=== PATIENT | female | born 1960 | race Caucasian/White ===

== ENCOUNTER 2021-02-26 16:28 | Emergency (ER) | payer OTHER ==
[~2021-02-26] VITALS: Ht 167.6 cm; Wt 54.4 kg
[2021-02-26] MEDS ORDERED: ONDANSETRON 4 MG/2 ML VIAL IV ONE (16:45)
[2021-02-26] MEDS ORDERED: CHARCOAL/SORBITOL SOLUTION 50 GM/240 ML BOTTLE NG ONE (16:45)
[2021-02-26] MEDS ORDERED: IV NORMAL SALINE 1000 ML BAG IV ONE ×2 (16:45→17:15)
[2021-02-26] MEDS ORDERED: CHARCOAL/SORBITOL SOLUTION 50 GM/240 ML BOTTLE ONE (16:56)
[2021-02-26] MEDS ORDERED: ONDANSETRON 4 MG/2 ML VIAL ONE (16:56)
[2021-02-26 16:57] LABS: BASOPHILS % (AUTO) 0.3 % (0.0-2.0); EOSINOPHILS # (AUTO) 0.1 K/uL (0.0-0.7); EOSINOPHILS % (AUTO) 1.3 % (0.0-7.0); HEMATOCRIT 44.3 % (31.2-41.9); HEMOGLOBIN 14.8 g/dL (10.9-14.3); LYMPHOCYTES # (AUTO) 1.7 K/uL (20.0-40.0); LYMPHOCYTES % (AUTO) 15.4 % (20.5-51.5); MEAN CORPUSCULAR HEMOGLOBIN 29.4 uug (24.7-32.8); MEAN CORPUSCULAR HGB CONC 33 g/dL (32.3-35.6); MEAN CORPUSCULAR VOLUME 88.1 fL (75.5-95.3); MONOCYTES # (AUTO) 0.6 K/uL (2.0-10.0); MONOCYTES % (AUTO) 5.7 % (0.0-11.0); NEUTROPHILS # (AUTO) 8.3 K/uL (1.8-8.9); NEUTROPHILS % (AUTO) 77.3 % (38.5-71.5); PLATELET COUNT (AUTO) 307 K/uL (179-408); RED BLOOD CELL COUNT(AUTO) 5.03 MIL/uL (3.63-4.92); WHITE BLOOD COUNT (AUTO) 10.7 K/uL (3.8-11.8)
[2021-02-26 17:03] LABS: CARBON DIOXIDE 27 mmol/L (21-32); CHLORIDE 100 mmol/L (98-107); CREATININE 0.8 mg/dL (0.6-1.3); GLUCOSE 90 mg/dL (74-106); POTASSIUM 4.1 mmol/L (3.5-5.1); UREA NITROGEN, BLOOD 15 mg/dL (7-18)
[2021-02-26 17:08] LABS: ALANINE AMINOTRANSFERASE 23 U/L (14-59); ALKALINE PHOSPHATASE 60 U/L (50-136); ASPARTATE AMINOTRANSFERASE 15 U/L (15-37); BILIRUBIN,DIRECT 0.1 mg/dL (0.0-0.2); BILIRUBIN,TOTAL 0.1 mg/dL (0.2-1.0); ETHANOL < 3 MG/DL (0-0); TOTAL PROTEIN, SERUM 7.2 g/dL (6.4-8.2)
[2021-02-26 17:18] LABS: ACETAMINOPHEN < 2.0 ug/mL (10-30)
--- NOTE | 2021-02-26 17:34 | NUR ---
second IV order was duplicate, not given.
[2021-02-26] MEDS ORDERED: DOXE50CA4 PO (18:39)
[2021-02-26] MEDS ORDERED: SERT25TA PO (18:39)
[2021-02-26] MEDS ORDERED: TEMA7.5C2 PO (18:39)
[2021-02-26] MEDS ORDERED: TEMA15CA PO (18:39)
[2021-02-26 18:44] LABS: *BILIRUBIN,URIN NEGATIVE (NEGATIVE); *BLOOD, URINE NEGATIVE (NEGATIVE); *CLARITY,URINE CLEAR (CLEAR); *COLOR,URINE YELLOW (YELLOW); *KETONES,URINE NEGATIVE (NEGATIVE); *UROBILINOGEN,URINE 0.2 E.U./dl (NORMAL); LEUKOCYTE ESTERASE ,URINE NEGATIVE (NEGATIVE); NITRITE, URINE NEGATIVE (NEGATIVE); PH,URINE 7.5 (5.0-8.0); UGLUCOSE NEGATIVE (NEGATIVE)
[2021-02-26 18:54] LABS: *AMPHETAMINE, URINE NEGATIVE (NEGATIVE); *CANNABINOID, URINE NEGATIVE (NEGATIVE); *COCCAINE, URINE NEGATIVE (NEGATIVE); *OPIATE, URINE NEGATIVE (NEGATIVE); *PHENCYCLIDINE SCREEN,URINE NEGATIVE (NEGATIVE)
--- NOTE | 2021-02-26 19:00 | NUR ---
Received patient in bed resting comfortaby. Patient is alert but still very drowsy, family at the bedside. Patient has NGZT placed to suction, ballard cath placed draining clear yellow urine. Dr. Oreilly and the family discussing plan to transfer.
--- NOTE | 2021-02-26 20:15 | NUR ---
NG tube removed without complications. Tip of tube intact, no bleeding noted. Patient provided with wash cloth and mild J&J soap to wash her face. Mitchell borges provided for her nare.
--- NOTE | 2021-02-26 20:20 | NUR ---
Dr. Oreilly speaking with Dr. Tobar of [facility].
--- NOTE | 2021-02-26 20:37 | NUR ---
Poison control contacted, they stated as since greater than 4 hours have pased since ingestion, and as long as she is not getting worse and is progressing toward her baseline, they dont recommend any further interventions.
--- NOTE | 2021-02-26 22:08 | NUR ---
Patient transferred via [facility] ambulance. Patient stable on transfer, VS stable, no SOB or signs of distress. All belongings accompanied patient. All pertinent paperwork given to transporting field traffic investigator. Report given to [facility] ER nurse. Accepting physician Dr. Metzger.
== END 2021-02-26 22:08 | disposition short-term general hospital (02) ==
LOC: ER 16:30
DX: T42.6X2A Poisoning by other antiepileptic and sedative-hypnotic drugs, intentional self-harm, initial encounter (principal); G92 Toxic encephalopathy; Y92.013 Bedroom of single-family (private) house as the place of occurrence of the external cause; Z88.0 Allergy status to penicillin; Z79.899 Other long term (current) drug therapy; Z20.822 Contact with and (suspected) exposure to COVID-19; R94.31 Abnormal electrocardiogram [ECG] [EKG]
CPT/HCPCS: 36415; 43752; 51702; 71045; 80048; 80076; 80299; 80307; 80320; 81003; 84443; 85025; 87426; 93005; 96361; 96374; 99291; J2405; A4663; G0480; J7030

== ENCOUNTER 2021-02-27 06:28 | Inpatient (IN) | payer OTHER ==
[~2021-02-27] VITALS: Ht 167.6 cm; Wt 54.4 kg
[2021-02-27] VITALS (53 sets, daily range): BP systolic 61–132; BP diastolic 36–84
[~2021-02-27 06:28] MED LIST: DOXE50CA4 PO; SERT25TA PO; TEMA15CA PO; TEMA7.5C2 PO
[2021-02-27] MEDS ORDERED: IV NORMAL SALINE 1000 ML BAG IV ONE ×2 (06:45→07:30)
[2021-02-27] MEDS ORDERED: NALOXONE HCL 0.4 MG/ML AMPUL ONE (06:45)
[2021-02-27] MEDS ORDERED: NALOXONE HCL 0.4 MG/ML AMPUL IV ONE (06:45)
--- NOTE | 2021-02-27 06:50 | NUR ---
Patient brought in by RA 83, Patient unresponsive to all stimuli, on NRBM 15L O2. Pupils 2mm sluggish. Patient connected to monitor, SBP 86/52, HR 92, SPO2 100% on 15L NRBM. BS 113. Paramedics stated they had to utilize a BVM in the field due to abnormal respirations. Patient was previously here 02/26/2021 for overdose on ambien 16 5mg tabs, transferred to [facility] @2208 02/26/21 for phyche evaluation due to suicidal ideations and suicide attempt. Patient was apparently discharged by [place]. This morning the patient's family found her face down in the bathroom unresponsive, prompting them to call 911.
[2021-02-27] MEDS ORDERED: levETIRAcetam IV 1,000 MG in IV DEXTROSE 5% 100 ML IV STA (06:52)
[2021-02-27] MEDS ORDERED: MAGNESIUM SULFATE/D5W 200 ML ONE (07:00)
[2021-02-27] MEDS ORDERED: PROPOFOL 0 ML ONE (07:01)
[2021-02-27] MEDS: MAGNESIUM SULFATE/D5W 100 ML IV SCH ×2 (07:10→08:00)
--- NOTE | 2021-02-27 07:10 | NUR ---
20g peripheral IV started in the right wrist, 1L NS bolus started. Narcan 0.4mg given, not effective.
[2021-02-27] MEDS ORDERED: NOREPINEPHRINE BITARTRATE 4 MG/4 ML VIAL IV ONE (07:13)
[2021-02-27] MEDS ORDERED: LORAZEPAM 2 MG/1 ML VIAL IV ONE (07:15)
[2021-02-27] MEDS: NOREPINEPHRINE BITARTRATE 8 MG in IV NORMAL SALINE 242 ML IV PRN ×5 (07:15→23:46)
--- NOTE | 2021-02-27 07:15 | NUR ---
Patient intubated by Dr. Gama, 8.0 ETT @ 22cm. Ventilator settings AC 16, vT 450, SFiO2 50, PEEP 5. Patient started on levophed 8mg/242mL NS @1mcg/kg/min for SBP 59 at this time.
[2021-02-27 07:24] LABS: BASOPHILS % (AUTO) 0.2 % (0.0-2.0); EOSINOPHILS # (AUTO) 0.1 K/uL (0.0-0.7); EOSINOPHILS % (AUTO) 1.1 % (0.0-7.0); HEMATOCRIT 39.8 % (31.2-41.9); HEMOGLOBIN 12.9 g/dL (10.9-14.3); LYMPHOCYTES # (AUTO) 1.3 K/uL (20.0-40.0); LYMPHOCYTES % (AUTO) 10.9 % (20.5-51.5); MEAN CORPUSCULAR HEMOGLOBIN 29.3 uug (24.7-32.8); MEAN CORPUSCULAR HGB CONC 33 g/dL (32.3-35.6); MEAN CORPUSCULAR VOLUME 90.2 fL (75.5-95.3); MONOCYTES # (AUTO) 0.8 K/uL (2.0-10.0); MONOCYTES % (AUTO) 6.8 % (0.0-11.0); NEUTROPHILS # (AUTO) 9.4 K/uL (1.8-8.9); PLATELET COUNT (AUTO) 235 K/uL (179-408); RED BLOOD CELL COUNT(AUTO) 4.41 MIL/uL (3.63-4.92); WHITE BLOOD COUNT (AUTO) 11.6 K/uL (3.8-11.8)
[2021-02-27] MEDS ORDERED: LORAZEPAM 2 MG/1 ML VIAL ONE (07:26)
[2021-02-27 07:27] LABS: ABG BASE EXCESS -4.2 mmol/L; ABG HCO3 20.9 mmol/L; ABG PCO2 38.4 mmHg (35.0-45.0); ABG PH 7.353 (7.350-7.450); ABG PO2 137.6 mmHg (75.0-100.0); ABG SITE RIGHT RADIAL; ABG TOTAL HEMOGLOBIN 14.8 G/dL (12.0-16.0); COHb 1.1 % (0.5-1.5); MetHb 0.2 % (0.0-1.5); VENT MODE VENT - A/C; VT, ABG 450 mL
[2021-02-27] MEDS ORDERED: levETIRAcetam 500 MG/5 ML VIAL IV ONE (07:27)
[2021-02-27] MEDS ORDERED: ETOMIDATE 20 MG/10 ML VIAL IV ONE (07:30)
[2021-02-27] MEDS ORDERED: ROCURONIUM BROMIDE 50 MG/5 ML VIAL IV ONE ×2 (07:30→13:48)
[2021-02-27 07:31] LABS: CARBON DIOXIDE 21 mmol/L (21-32); CHLORIDE 102 mmol/L (98-107); CREATININE 0.8 mg/dL (0.6-1.3); GLUCOSE 88 mg/dL (74-106); UREA NITROGEN, BLOOD 11 mg/dL (7-18)
[2021-02-27 07:33] LABS: ETHANOL < 3 MG/DL (0-0)
[2021-02-27 07:35] LABS: POTASSIUM 2.8 mmol/L (3.5-5.1)
[2021-02-27 07:42] LABS: PHOSPHOROUS 3.1 mg/dL (2.5-4.9)
[2021-02-27 07:45] LABS: ALANINE AMINOTRANSFERASE 20 U/L (14-59); ALKALINE PHOSPHATASE 49 U/L (50-136); ASPARTATE AMINOTRANSFERASE 16 U/L (15-37); BILIRUBIN,DIRECT 0.1 mg/dL (0.0-0.2); BILIRUBIN,TOTAL 0.2 mg/dL (0.2-1.0); CREATINE KINASE, TOTAL 44 U/L (26-192); THYROID STIMULATING HORMONE 2.696 mIU/mL (0.358-3.740)
[2021-02-27] MEDS ORDERED: SODIUM BICARBONATE 8.4% 50 MEQ/50 ML DISP.SYRIN IV ONE ×2 (07:45→07:51)
[2021-02-27] MEDS ORDERED: POTASSIUM CHLORIDE 20 MEQ POWDER PACKET NG ONE (07:45)
--- NOTE | 2021-02-27 07:50 | NUR ---
levophed drip lowered to 0.3mcg/kg/min to maintain MAP above 60 per md order.
[2021-02-27 07:51] LABS: ACETAMINOPHEN < 2.0 ug/mL (10-30)
[2021-02-27] MEDS ORDERED: CEFEPIME HCL 2 G in IV DEXTROSE 5% 100 ML IV ONE (08:30)
[2021-02-27] MEDS ORDERED: CALCIUM GLUCONATE IV 1 GM in IV DEXTROSE 5% 50 ML IV ONE (08:30)
--- NOTE | 2021-02-27 08:40 | NUR ---
pt to ct accompnaied by rn and rt on monitor.
[2021-02-27 08:43] LABS: *BILIRUBIN,URIN NEGATIVE (NEGATIVE); *BLOOD, URINE 1+ (NEGATIVE); *CLARITY,URINE CLEAR (CLEAR); *COLOR,URINE YELLOW (YELLOW); *KETONES,URINE NEGATIVE (NEGATIVE); *UROBILINOGEN,URINE 0.2 E.U./dl (NORMAL); LEUKOCYTE ESTERASE ,URINE NEGATIVE (NEGATIVE); NITRITE, URINE NEGATIVE (NEGATIVE); PH,URINE 8.5 (5.0-8.0); UGLUCOSE TRACE (NEGATIVE)
[2021-02-27 08:49] LABS: *URINE HCG, QUAL NEGATIVE (NEGATIVE)
--- NOTE | 2021-02-27 08:52 | NUR ---
pt back from ct
[2021-02-27 08:53] LABS: *AMPHETAMINE, URINE NEGATIVE (NEGATIVE); *CANNABINOID, URINE NEGATIVE (NEGATIVE); *COCCAINE, URINE NEGATIVE (NEGATIVE); *OPIATE, URINE NEGATIVE (NEGATIVE); *PHENCYCLIDINE SCREEN,URINE NEGATIVE (NEGATIVE)
[2021-02-27] MEDS ORDERED: VANCOMYCIN IV 1,000 MG in IV DEXTROSE 5% 250 ML IV ONE (09:15)
[2021-02-27] MEDS ORDERED: CALCIUM GLUCONATE 1 GM/10 ML VIAL IV ONE (09:15)
[2021-02-27] MEDS ORDERED: DOXYCYCLINE HYCLATE IV 100 MG in IV DEXTROSE 5% 100 ML IV ONE (09:15)
--- NOTE | 2021-02-27 09:15 | NUR ---
rectal temp 94.0, bear hugger placed per md order.
[2021-02-27] MEDS ORDERED: POTASSIUM CHLORIDE 200 ML ONE (09:16)
[2021-02-27] MEDS ORDERED: POTASSIUM CHLORIDE 20 MEQ POWDER PACKET ONE (09:16)
[2021-02-27] MEDS ORDERED: CEFEPIME HCL 1 G VIAL ONE (09:16)
[2021-02-27] MEDS ORDERED: VANCOMYCIN IV 200 ML ONE (09:17)
[2021-02-27 09:18] LABS: ABG HCO3 22.1 mmol/L; ABG PCO2 36.3 mmHg (35.0-45.0); ABG PH 7.403 (7.350-7.450); ABG PO2 129.4 mmHg (75.0-100.0); ABG SITE RIGHT RADIAL; ABG TOTAL HEMOGLOBIN 15.5 G/dL (12.0-16.0); COHb 1.1 % (0.5-1.5); MetHb 0.3 % (0.0-1.5); O2Hb 97.7 % (94.0-97.0); VENT MODE VENT - A/C; VT, ABG 450 mL
[2021-02-27] MEDS: POTASSIUM CHLORIDE 50 ML IV SCH ×4 (09:23→11:30)
--- NOTE | 2021-02-27 09:54 | NUR ---
PT INTUBATED SUCCESSFULLY BY DR PALMA USING A 8.0 ETT SECURED 21@ LIP. VENT SETTINGS AC16/VT 450/+5 PEEP/50% FIO2. PT TOLERATING CURRENT VENT SETTINGS FINE WITH NO DISTRESS. WILL CONTINUE TO MONITOR.
[2021-02-27] MEDS ORDERED: DOXYCYCLINE HYCLATE 100 MG INJ IV ONE (10:19)
[2021-02-27] MEDS ORDERED: Z GUARD REMEDY PASTE 57 GM TUBE TOP PRN (10:30)
[2021-02-27] MEDS ORDERED: ACETAMINOPHEN 325 MG TABLET PO PRN (10:30)
[2021-02-27] MEDS ORDERED: ONDANSETRON 4 MG/2 ML VIAL IV PRN (10:30)
[2021-02-27] MEDS ORDERED: MAGNESIUM HYDROXIDE 30 ML LIQUID UDC PO PRN (10:30)
[2021-02-27] MEDS ORDERED: HYDROCODONE/APAP 5-325MG TABLET PO PRN (10:30)
--- NOTE | 2021-02-27 11:00 | NUR ---
pt transfered to floor with RT assisstance. Addendum: 02/27/21 at 1224 by AASHISH levophed drip running at 0.3 mcg/kg/min IV. Addendum: 02/27/21 at 1226 by AASHISH potassium chloride IV running at the time of transfer to floor.
--- NOTE | 2021-02-27 11:22 | NUR ---
received 60 YO female from ER department - CC: drug OD. Unresponsive to painful stimuli, pupils fixed and dilated, negative Babinski reflex, negative cough and gag reflex. On levophed 0.3 mcg/kg - BP 112/75, HR 103. Bilateral radial and dorsal pulse - 2+ palpable. Vent AC 13, TV 450, FiO2 35%, PEEP 5, LL 21 cm, SpO2 97%. Bui catheter - draining and patent. 3L central line on left chest - flushed and patent. IV on right wrist 20G and left wrist 22G. Rectal temp 93.3 F - on bear hugger for temp control. Aspiration precaution initiated. Safety precautions in place. Will continue to monitor.
[2021-02-27 11:25] LABS: BACTERIA,URINE FEW /HPF (NONE SEEN); SQUAMOUS EPITHELIAL CELL,UR FEW /HPF (NONE SEEN); WBC,URINE 0-3 /HPF (0-3)
[2021-02-27] MEDS ORDERED: NOREPINEPHRINE BITARTRATE 32 MG in IV NORMAL SALINE 218 ML IV PRN (11:45)
[2021-02-27] MEDS: IV NS 1000 ML 1,000 ML IV SCH ×2 (12:06→22:14)
--- NOTE | 2021-02-27 12:11 | NUR ---
Magnesium infused in ED prior to transport. Notified pharmacy. Finished infusing last bag of Potassium after arrival in ICU.
[2021-02-27] MEDS ORDERED: ETOMIDATE 20 MG/10 ML VIAL MC ONE (13:48)
--- NOTE | 2021-02-27 13:54 | NUR ---
Received call from German from Poison Control , inquiring about updates regarding patient and to notify RN that they are available for any support needed.
--- NOTE | 2021-02-27 15:07 | NUR ---
ECHOCARDIOGRAM TECH AT BEDSIDE AT THIS TIME
--- NOTE | 2021-02-27 16:45 | NUR ---
Peripheral temperature 99.0 - bear hugger put on standby. Will continue to monitor.
--- NOTE | 2021-02-27 17:10 | NUR ---
Patient's sisters at bedside, Loan and Deepthi. Had numerous question regarding patient's condition. Had extensive conversation and given updates from laboratory, imaging and medications given since patient arrived this AM via ambulance.
--- NOTE | 2021-02-27 17:15 | NUR ---
Called Dr Nassar to inform of Neurology consult, states he will speak with hospitalist for the consult.
--- NOTE | 2021-02-27 17:22 | NUR ---
Received callback from Dr. Nassar - Neurologist. MD states will come in AM for consult.
[2021-02-27] MEDS ORDERED: levETIRAcetam IV 1,000 MG in IV DEXTROSE 5% 100 ML IV SCH (18:00)
--- NOTE | 2021-02-27 18:10 | NUR ---
Patient exhibiting seizure activities x 4. Neurologist notified. Orders received and implemented.
[2021-02-27] MEDS ORDERED: levETIRAcetam IV 1,000 MG in IV DEXTROSE 5% 100 ML IV ONE (18:13)
[2021-02-27] MEDS ORDERED: DOXYCYCLINE HYCLATE IV 100 MG in IV DEXTROSE 5% 100 ML IV SCH (18:30)
--- NOTE | 2021-02-27 19:05 | NUR ---
Received patient in bed orally intubated. ETT 8.[address] @22cm, AC 13, vT 450, FiO2 35%, PEEP 5. Patient currently having frequent seizure activity, with tonic-clonic movements. Patient had just received Keppra 1000mg @1753 and 1000mg @0710 in the ER this morning, Neurologist Dr. Nassar aware of seizure activity. Awaiting STAT EEG. ST on the monitor, BP 101/71, SpO2 98%, 98.7*F. NGT present and clamped. Left wrist 20g, Right forearm 20g, Right subclavian PICC. Currently running Levophed @0.26mcg/kg/min, 0.9% NS @ 100ml/h, currently running Doxycycline 100mg @100ml/hr. Neurologically, apart from the seizure activity, the patient has no responsiveness to any stimuli. Gag reflex and cough reflex are unappreciable. Pupils are dilated and fixed. No corneal reflex appreciable. Peripheral reflexes absent. Lung ward clear, Bowel sounds active all quadrants.
--- NOTE | 2021-02-27 19:30 | NUR ---
Generalized tonic-clonic seizure activity lasting approximately 3 minutes. Continuing to monitor frequency and duration of seizure activity.
--- NOTE | 2021-02-27 19:42 | NUR ---
Received pt orally intubated with 8.0ETT~21cm at lip line, on Novoa ventilator with the following settings of AC-13, Vt-450, PEEP+5, FIO2-35%. No s/s of respiratory distress noted. EEG in progress. ETT moved to the midline. Vent and alarms on and audible.
--- NOTE | 2021-02-27 19:50 | NUR ---
POWDER COMPOUNDER IS HERE TO DO EEG
--- NOTE | 2021-02-27 20:00 | NUR ---
Generalized tonic-clonic seizure activity lasting approximately 5 seconds, captured on EEG. Continuing to monitor frequency and duration of seizure activity. Dr. Nassar on the phone with me at the time of the seizure and made aware. New orders to change the Keppra order to 1500mg Q12h, and phenytoin 1g x 1 now, and then 200mg q12h starting @0900.
--- NOTE | 2021-02-27 20:15 | NUR ---
[employer] SCHOOL PROFESSIONAL SPOKE TO DR LANTIGUA ABOUT FINDINGS IN EEG
--- NOTE | 2021-02-27 20:20 | NUR ---
Generalized tonic-clonic seizure activity lasting approximately 3 seconds. Continuing to monitor frequency and duration of seizure activity. Dr. Nassar called and ordered Amantadine 100mg via NGT BID. Dr. Nassar also requested the patient be transferred to a [facility] facility with a [facility] ICU for continuous EEG monitoring. synthetic department supervisor made aware.
--- NOTE | 2021-02-27 20:20 | NUR ---
DR LANTIGUA SPOKE TO FAMILY NUTRITION HELPER PER SON REQUEST , REGARDING RESULTS OF EEG , PLANS AND MEDICATIONS ORDERED FOR SEIZURE
[2021-02-27] MEDS ORDERED: PHENYTOIN SODIUM IV 1,000 MG in IV NORMAL SALINE 100 ML IV ONE (20:30)
--- NOTE | 2021-02-27 20:31 | NUR ---
SON AND OTHER FAMILY MEMBER AT BEDSIDE
--- NOTE | 2021-02-27 20:32 | NUR ---
TANK CAR CLEANER MADE AWARE OF ORDER OF DR LANTIGUA TO TRANSFER PATIENT TO NEURO ICU
--- NOTE | 2021-02-27 20:45 | NUR ---
Generalized tonic-clonic seizure activity lasting approximately 3 seconds.
--- NOTE | 2021-02-27 20:50 | NUR ---
vernon from [place] was called regarding transfer order to neuro icu , , will let us know when bed and transfer order updates available
[2021-02-27] MEDS: AMANTADINE HCL 100 MG CAPSULE NG SCH (20:58)
--- NOTE | 2021-02-27 21:57 | NUR ---
Patient has been experiencing increased generalized tonic-clonic seizure activity for the past 45 minutes. Seizures are about 1 second in duration and are coming on every 10-15 seconds. Oxygen increased to 100% and Levophed increased to 1mcg/kg/min for additional support. As of now the patient's seizure activity seems to be slowing down and it has been a few minutes since the last seizure.
--- NOTE | 2021-02-27 22:42 | NUR ---
vernon was called again , regarding transfer eta possiblity , was told it will happen on the day shift , pipe fitter supervisor is made aware [phone]
--- NOTE | 2021-02-27 23:30 | NUR ---
dr patten was called to notify of heart rate and blood pressure, and medications given , received order to call math teacher adult secondary education instructor
--- NOTE | 2021-02-27 23:30 | NUR ---
Patient suddenly began frequent seisure activity, with blood pressure dropping to very low levels and heart rate dropping to the 30s. Carotid pulse still strong but presley. Levophed was increased to maximum 1mcg/kg/min. Call placed into Dr. Lewis.
--- NOTE | 2021-02-27 23:42 | NUR ---
dr doyle was called notified of new consult , history , current status of medications , medication given and running , received order to start patient on dopamine
[2021-02-27] MEDS ORDERED: DOPamine IV DRIP 400 MG/250ML 250 ML ONE (23:51)
[2021-02-27] MEDS: DOPamine IV DRIP 400 MG/250ML 250 ML IV PRN (23:55)
[2021-02-28] VITALS (93 sets, daily range): BP systolic 49–159; BP diastolic 28–133
[2021-02-28] MEDS ORDERED: EPINEPHRINE 1:10,000 1 MG/10 ML DISP.SYRIN IV ONE
[2021-02-28] MEDS ORDERED: ATROPINE SULFATE 1 MG/10 ML DISP.SYRIN IV ONE ×3
--- NOTE | 2021-02-28 00:10 | NUR ---
dr doyle is called again , notified of sustaining heart rate , and 3 atropine given for heart rate sustaining to 30"s , and epinephrine for very weak pulse and low blood pressure reading , received order of abag , ekg , labs and epinephrine drip
[2021-02-28] MEDS ORDERED: EPINEPHRINE AMP 5 MG in IV NORMAL SALINE 245 ML IV PRN (00:15)
[2021-02-28] MEDS ORDERED: EPINEPHRINE 1 MG/1 ML AMP ONE (00:41)
[2021-02-28 00:51] LABS: BILIRUBIN,TOTAL 0.7 mg/dL (0.2-1.0); CREATININE 1.6 mg/dL (0.6-1.3); POTASSIUM 5.6 mmol/L (3.5-5.1)
[2021-02-28 00:51] LABS: ABG BASE EXCESS -10.8 mmol/L; ABG HCO3 15.9 mmol/L; ABG PCO2 38.2 mmHg (35.0-45.0); ABG PH 7.236 (7.350-7.450); ABG PO2 93.7 mmHg (75.0-100.0); ABG SITE LEFT RADIAL; ABG TOTAL HEMOGLOBIN 15.1 G/dL (12.0-16.0); COHb 1.3 % (0.5-1.5); MetHb 0.4 % (0.0-1.5); O2Hb 95.4 % (94.0-97.0); VENT MODE VENT - A/C; VT, ABG 450 mL
[2021-02-28] MEDS ORDERED: SODIUM POLYSTYRENE SULFONATE 15 G/60 ML LIQUID UDC PO ONE (01:30)
[2021-02-28] MEDS ORDERED: CALCIUM GLUCONATE IV 1 GM in IV NORMAL SALINE 100 ML IV ONE ×3 (01:30→08:00)
[2021-02-28] MEDS ORDERED: PHENYLEPHRINE IV 50 MG in IV NORMAL SALINE 245 ML IV PRN (01:30)
--- NOTE | 2021-02-28 01:30 | NUR ---
dr doyle was called for results of abg , cxr , ekg , medications running and given and current status and vs , received order of kayexalate , calcium gluconate and neosynephrine
[2021-02-28] MEDS ORDERED: CALCIUM GLUCONATE 1 GM/10 ML VIAL IV ONE ×2 (01:48→01:55)
[2021-02-28] MEDS ORDERED: NOREPINEPHRINE BITARTRATE 4 MG/4 ML VIAL IV ONE ×3 (02:06→04:44)
[2021-02-28] MEDS: NOREPINEPHRINE BITARTRATE 8 MG in IV NORMAL SALINE 242 ML IV PRN ×6 (02:25→23:47)
[2021-02-28] MEDS: DOPamine IV DRIP 400 MG/250ML 250 ML IV PRN (04:01)
--- NOTE | 2021-02-28 04:13 | NUR ---
patient was given ice bed bath for temp 103.1 , asked for shannon rpeciado , unavailable , per floor supervisor
--- NOTE | 2021-02-28 04:15 | NUR ---
tylenol pr was given for temp 103.1 , before giving patient ice bath
--- NOTE | 2021-02-28 04:22 | NUR ---
heart rate went down to 109 . bp is 112/ 63 . rr 13 / 98 oxygen saturation on 35 % fio2 , after ice bath and tylenol
[2021-02-28 05:02] LABS: BASOPHILS % (AUTO) 0.1 % (0.0-2.0); HEMATOCRIT 50.2 % (31.2-41.9); HEMOGLOBIN 16.2 g/dL (10.9-14.3); LYMPHOCYTES # (AUTO) 0.6 K/uL (20.0-40.0); LYMPHOCYTES % (AUTO) 2.2 % (20.5-51.5); MEAN CORPUSCULAR HEMOGLOBIN 28.9 uug (24.7-32.8); MEAN CORPUSCULAR HGB CONC 32 g/dL (32.3-35.6); MEAN CORPUSCULAR VOLUME 89.6 fL (75.5-95.3); MONOCYTES # (AUTO) 1.5 K/uL (2.0-10.0); NEUTROPHILS % (AUTO) 91.7 % (38.5-71.5); PLATELET COUNT (AUTO) 342 K/uL (179-408); WHITE BLOOD COUNT (AUTO) 25.1 K/uL (3.8-11.8)
[2021-02-28 05:20] LABS: CREATININE 1.7 mg/dL (0.6-1.3); MAGNESIUM 2.1 mg/dL (1.8-2.4); PHOSPHOROUS 3.5 mg/dL (2.5-4.9); POTASSIUM 4.8 mmol/L (3.5-5.1)
--- NOTE | 2021-02-28 05:30 | NUR ---
ice bed bath given for the second time for temp 100.4 . hr is 111, vs 147/ 90 rr 20 98 % fio2 35 %
[2021-02-28] MEDS ORDERED: levETIRAcetam IV 1,500 MG in IV DEXTROSE 5% 100 ML IV SCH ×2 (06:00→09:00)
[2021-02-28 06:13] LABS: ABG BASE EXCESS -6.8 mmol/L; ABG HCO3 17.9 mmol/L; ABG PCO2 34.4 mmHg (35.0-45.0); ABG PH 7.335 (7.350-7.450); ABG PO2 85.8 mmHg (75.0-100.0); ABG SITE LEFT BRACHIAL; ABG TOTAL HEMOGLOBIN 16.5 G/dL (12.0-16.0); COHb 1.1 % (0.5-1.5); MetHb 0.4 % (0.0-1.5); O2Hb 96.1 % (94.0-97.0); VENT MODE VENT - A/C; VT, ABG 450 mL
--- NOTE | 2021-02-28 06:59 | NUR ---
Patient remains intubated, AC 13, vT 450, FiO2 35%, PEEP 5. Patient had a rough night with episodes of frequent generalized tonic-clonic seizure activity accompanied by drops in BL and HR necessitating interventions with additional dopamine and epinephrine for support. Patient also spiked a 103.1 fever early this morning which was mitigated by ice water baths and Tylenol, patient currently has ice packs in her axilla and groin. Temperature at this moment 98.8 orally. Patient has seen dramatic improvement in the stabilization of her blood pressure over the past few hours, with Dopamine and Epinephrine currently off, and Levophed being titrated down, BP currently 152/95. Heart rate and rhythm have improved dramatically over the past few hours as well, with Heart Rate a steady 105 and sinus rhythm on the monitor. Neurologically patient remains completely unresponsive to any stimuli. Gag reflex and cough reflex are unappreciable. Pupils are dilated and fixed. No corneal reflex appreciable. Peripheral reflexes absent. Lung ward clear though diminished at the bases, Bowel sounds active all quadrants. Attempted to call the family with an update as they wish me to do, left a message for callback.
--- NOTE | 2021-02-28 07:01 | NUR ---
pharmacy was called 6am ryan bag not available here , will send the bag by pharmacist
[2021-02-28] MEDS: levETIRAcetam IV 1,500 MG in IV DEXTROSE 5% 100 ML IV SCH ×2 (07:22→20:07)
--- NOTE | 2021-02-28 07:38 | NUR ---
Spoke with the brother Noah, gave update.
[2021-02-28] MEDS: IV NS 1000 ML 1,000 ML IV SCH ×2 (08:07→15:33)
[2021-02-28] MEDS: PHENYTOIN SODIUM 100 MG/2 ML VIAL IV SCH ×3 (08:11→21:52)
[2021-02-28] MEDS: AMANTADINE HCL 100 MG CAPSULE NG SCH ×2 (08:45→20:32)
[2021-02-28] MEDS ORDERED: PHENYTOIN SODIUM 100 MG/2 ML VIAL IV SCH (09:00)
[2021-02-28] MEDS ORDERED: LACOSAMIDE IV ONE (09:00)
[2021-02-28] MEDS ORDERED: NORMAL SALINE IV ONE (09:00)
[2021-02-28] MEDS ORDERED: levETIRAcetam IV 1,000 MG in IV DEXTROSE 5% 100 ML IV SCH (09:00)
[2021-02-28] MEDS ORDERED: ASPIRIN 81 MG TAB.CHEW PO SCH (09:00)
--- NOTE | 2021-02-28 09:16 | NUR ---
RT changed vent settings per new orders to AC 15.
--- NOTE | 2021-02-28 09:16 | NUR ---
PATIENT RECEIVED ORALLY INTUBATED WITH 8.0 ETT @ APPROX 21CM AT LIP. ON RAMOS VENT WITH SETTINGS OF AC13, VT 450, PEEP+5, 35%. ALARMS ON AND AUDIBLE. AMBU BAG @ BED SIDE. VENTILATOR PLUGGED IN AT RED OUTLETS. WILL CONTINUE TO MONITOR T/O SHIFT. PER MD ORDERS RATE CHANGED TO 15 AT THIS TIME.
--- NOTE | 2021-02-28 09:33 | NUR ---
Dr. Perez in the unit to see patient. Partner at bedside states he has power of securities attorney. asked to bring in copy of that information. he also states that both parents are alive and are able to make decisions but are not well informed of what is happening at this point per partner. Partner name stated he is Ovidiokarol Chiang and Dr Perez updated him this morning regarding transfer, events that happened overnight, and plan of care.
[2021-02-28] MEDS ORDERED: DOXYCYCLINE HYCLATE IV 100 MG in IV DEXTROSE 5% 100 ML IV SCH (11:00)
--- NOTE | 2021-02-28 11:00 | NUR ---
Call Center Manager note: Call Center Manager consultation requested to identify decision maker. This STEAM SHOVEL OILER met with patient's friend/oracle business analyst Oivdio, who was bedside. Ovidio stated that patient has a son, Gerry, who lives with the patient, and he is 17 years old. Patient has been for many years, and her ex- lives in [place]. Patient's parents live in [place], father is Erin (90 years old) and mother is Roseann (85 years old). Patient has 1 brother (Herminio) and one sister (Natalia) who also live in [place], however patient's brother Herminio is flying out from [place] today, and will arrive in [place] tomorrow. Ovidio stated that he has financial power of disability attorney for the patient, but was not sure if that included medical decision making rights and that he had left a message for his medical front desk specialist in order to obtain copies of the paperwork. Ovidio's contact information is [phone]. Ovidio stated that he would provide the hospital with the paperwork once he obtains it from the medical front desk specialist. Currently patient's uncle lives locally, and has been involved in the patient's care, given that patient's next-of-kin is her son who is a minor. Patient's uncle (patient's mother's brother) is Hardeep, . Patient's face sheet also lists Loan Stone as "person to notify". During conversation with Ovidio, this social director clarified Loan's relationship to the patient, and Loan is a very close friend. Per CONCEPCION Gonzalez, Loan has identified herself as patient's sister, but Loan is not a biological sister to the patient. Per report from Ovidio (patient's oracle business analyst), patient had been suffering from Depression over the last 3 months, was not eating much and was having difficult sleeping. Patient was prescribed Ambien by her physician at [facility]. Ovidio stated that patient had a boyfriend who lived in [place], and while she was visiting him last August 2020, the boyfriend unexpectedly in the patient's arms a couple of days before New Years. Due to the pandemic, patient did not return to [place] until mid-November 2020, and Ovidio stated that since her return he had noticed that patient was "struggling emotionally". Ovidio stated that patient had developed fear, anxiety, and was having difficulty sleeping. Per patient's ED records, patient came to the ED on 02/26 after reports of having taken 16 Ambien pills. Patient was stabilized and transferred to [facility], from where she was then discharged home around 1:30am. According to Ovidio, patient denied taking 16 pills and instead took only 2 1/2 Ambien pills. A few hours after returning home, patient's son found patient unresponsive on the bathroom floor. Ovidio stated this was around 6am on 02/27, after which patient was once again brought in to [facility] emergency department. At this time, patient is intubated and unresponsive. All above information was relayed to Rock Climbing Instructor GROVER Nieves CM Daisy, and Dr. Taylor.
--- NOTE | 2021-02-28 11:03 | NUR ---
critical lactic acid 3.0. trending in the right direction.
--- NOTE | 2021-02-28 11:19 | NUR ---
Received a phone call from poison control pharmacist Benitez, . Stated to call them back if patient continues to have seizures for support if needed, or after event to report changes.
--- NOTE | 2021-02-28 12:38 | NUR ---
Poison control called back with recommendations from their relief cook- recommended DC Dilantin due to poor patient outcomes may continue keppra and place patient on propofol or versed. Due to prolonged QTC suggest for pacer pads placement.
--- NOTE | 2021-02-28 13:40 | NUR ---
Dr. Nassar rather wait to place patient on versed while patient is on continuos EEG monitoring. For now will wait to DC dilantin if she gets transferred today and there is another EEG pending for tonight.
--- NOTE | 2021-02-28 16:12 | NUR ---
notified dr. doyle regarding EKG changes. patient in accelerated junctional, ordered stat EKG showing accelerated junctional. received orders for repeat labs.
[2021-02-28 16:49] LABS: CREATININE 0.9 mg/dL (0.6-1.3); POTASSIUM 4.2 mmol/L (3.5-5.1)
[2021-02-28 16:53] LABS: MAGNESIUM 1.5 mg/dL (1.8-2.4); PHOSPHOROUS 2.3 mg/dL (2.5-4.9)
--- NOTE | 2021-02-28 17:00 | NUR ---
random extremity movements. occasional movements to painful stimuli. EEG in progress and no seizure activity noted per tech. Tech informed neurology dr. fang. pupils continue to be fixed and dilated.
[2021-02-28] MEDS: MAGNESIUM SULFATE/D5W 100 ML IV SCH ×4 (17:24→20:38)
[2021-02-28] MEDS ORDERED: CALCIUM GLUCONATE IV 2 GM in IV NORMAL SALINE 100 ML IV ONE (17:30)
[2021-02-28] MEDS ORDERED: SODIUM PHOSPHATE MM 15 MMOL in IV NORMAL SALINE 250 ML IV ONE (17:30)
--- NOTE | 2021-02-28 18:50 | NUR ---
[facility] called with bed [address] Ivan. phone number to give report is [phone]. cherry picker operator time is [id number]
--- NOTE | 2021-02-28 19:15 | NUR ---
[facility] called back to report delay in bean picker machine operator time at 2300. family already notified.
--- NOTE | 2021-02-28 19:15 | NUR ---
received patient unresponsive , no seizure noted at this time , vent setting of ac 15 tv 450 p 5 35 %, fi02 levophed running at 0.2 mcg , ns 100 ml , sodium phos running , magnesium running , , left subclavian with suture intact , , no skin breakdown , temp of 98.4 , sr 89 , bp of 145/ 78 , 98 % , rr 20 , ballard intact ,
--- NOTE | 2021-02-28 20:00 | NUR ---
report given to [place] [id number] , , eta pickling machine operator given , history of the patient , diagnosis , procedure done , vent settings , mental status , vs ,medications given , current lab works
--- NOTE | 2021-02-28 20:00 | NUR ---
patient son and research quality assurance analyst at bedside
--- NOTE | 2021-02-28 20:30 | NUR ---
seizure noted lasted 4 sec , with drooling , suctioned after
--- NOTE | 2021-02-28 20:37 | NUR ---
a room changed to 5107 , report given to db , history , dx , mental status , procedure , medication given and running , iv line , vent settings , current settings
--- NOTE | 2021-02-28 20:45 | NUR ---
irasema is here to see patient , , history and mental status and procedures update given
[2021-02-28] MEDS ORDERED: MAGNESIUM SULFATE/D5W 100 ML IV SCH (21:00)
[2021-02-28] MEDS ORDERED: ATORVASTATIN 40 MG TABLET PO SCH (21:00)
--- NOTE | 2021-02-28 21:10 | NUR ---
Received pt. on continuos vent AC 15 VT 450 Peep 5 Fio2 35%. BS diminished but clear. suction trace amount thin white secretions. vent checked, alarms working well and audible. No distress noted at this time. will continue to monitor.
[2021-02-28] MEDS ORDERED: CLINDAMYCIN PHOSPHATE 600 MG/4 ML VIAL ONE (21:44)
--- NOTE | 2021-02-28 21:56 | NUR ---
* Discusses measures to prevent aspiration * Maintains normal breath sounds * Maintains normal WBC * Maintains vital signs WNL Addendum: 02/28/21 at 2157 by CRISTIANE LEAL RN Amended: Links added.
[2021-02-28] MEDS ORDERED: CLINDAMYCIN PHOSPHATE IV 600 MG in IV DEXTROSE 5% 100 ML IV SCH (22:00)
[2021-02-28] MEDS ORDERED: GENTAMICIN SULFATE INJ 60 MG in IV DEXTROSE 5% 50 ML IV SCH (22:00)
[2021-02-28] MEDS ORDERED: GENTAMICIN SULFATE 80 MG/2 ML VIAL ONE (22:05)
--- NOTE | 2021-02-28 23:00 | NUR ---
seizure noted that lasted 5 seconds
--- NOTE | 2021-02-28 23:27 | NUR ---
[facility] intake was called to follow up eta
[2021-03-01] VITALS: BP 130/70
--- NOTE | 2021-03-01 | NUR ---
report given to keira chang, from [facility] , history , medications given and running , seizure episodes , incidents , procedure ,
[2021-03-01 00:30] VITALS: BP 128/82
[2021-03-01] MEDS ORDERED: EPINEPHRINE 1:10,000 1 MG/10 ML DISP.SYRIN IV ONE (00:44)
[2021-03-01] MEDS ORDERED: EPINEPHRINE 1 MG/1 ML AMP IJ ONE (00:44)
[2021-03-01] MEDS ORDERED: ATROPINE SULFATE 1 MG/10 ML DISP.SYRIN IV ONE (00:44)
--- NOTE | 2021-03-01 00:45 | NUR ---
pt discharged to [facility] via [facility].
--- NOTE | 2021-03-01 00:45 | NUR ---
patient left picked up by [facility] , with acls , stable vs , ballard and left subclavian iv intact with levophed at 0.2 mcg running , and ns 100 ml , vent settings , ogt and ett intact , no fever
--- NOTE | 2021-03-01 00:53 | NUR ---
family called to notify patient was picked up by ambulance to go to [facility]
== END 2021-03-01 00:45 | disposition short-term general hospital (02) | DRG 917 ==
LOC: ER 06:31 → CCU 10:28
PROVIDERS: ADMIT Family Medicine; ATTEND Internal Medicine
PROC: 5A1945Z Respiratory Ventilation, 24-96 Consecutive Hours (ICD-10-PCS; principal; 2021-02-27)
PROC: 0BH17EZ Insertion of Endotracheal Airway into Trachea, Via Natural or Artificial Opening (ICD-10-PCS; 2021-02-27)
PROC: 02HV33Z Insertion of Infusion Device into Superior Vena Cava, Percutaneous Approach (ICD-10-PCS; 2021-02-27)
PROC: B548ZZA Ultrasonography of Superior Vena Cava, Guidance (ICD-10-PCS; 2021-02-27)
DX: T50.991A Poisoning by other drugs, medicaments and biological substances, accidental (unintentional), initial encounter (principal); G92 Toxic encephalopathy; J96.01 Acute respiratory failure with hypoxia; J96.02 Acute respiratory failure with hypercapnia; J69.0 Pneumonitis due to inhalation of food and vomit; N17.0 Acute kidney failure with tubular necrosis; A41.9 Sepsis, unspecified organism; R65.21 Severe sepsis with septic shock; R40.20 Unspecified coma; R40.2342 Coma scale, best motor response, flexion withdrawal, at arrival to emergency department; R40.2122 Coma scale, eyes open, to pain, at arrival to emergency department; R40.2212 Coma scale, best verbal response, none, at arrival to emergency department; E44.1 Mild protein-calorie malnutrition; E87.2 Acidosis; G93.1 Anoxic brain damage, not elsewhere classified; I42.9 Cardiomyopathy, unspecified; G40.911 Epilepsy, unspecified, intractable, with status epilepticus; Y92.019 Unspecified place in single-family (private) house as the place of occurrence of the external cause; E87.6 Hypokalemia; E83.51 Hypocalcemia; Z88.0 Allergy status to penicillin; F32.9 Major depressive disorder, single episode, unspecified; E88.09 Other disorders of plasma-protein metabolism, not elsewhere classified; Y92.099 Unspecified place in other non-institutional residence as the place of occurrence of the external cause; I95.9 Hypotension, unspecified; R73.9 Hyperglycemia, unspecified; N18.9 Chronic kidney disease, unspecified; R94.31 Abnormal electrocardiogram [ECG] [EKG]; Z20.822 Contact with and (suspected) exposure to COVID-19
CPT/HCPCS: 36415; 36600; 51702; 70030-TC; 70450; 71045; 83605; 83690; 83735; 84100; 84443; 84703; 85025; 85730; 87040; 87070; 93005; 93307; 94002; 94003; 95819; A4663; G0378; G0480; J0171; J0461; J0610; J0692; J1165; J1265; J1580; J1953; J2060; J2310; J3370; J3475; J3480; J3490; J7030; J7050; J7060